=== PATIENT | male | born 1955 | race African-American/Black ===

== ENCOUNTER → 2017-03-22 | Outpatient (CLI) | payer OTHER ==
[~2017-03-22] MED LIST: ASPIR 8181 MG PO; ATENOLOL 50MG T50 M1 PO; NORVASC5 MG PO; VITAMIN B-12500 MCG PO
--- NOTE | ~2017-03-22 | EKG ---
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 No previous ECG available for comparison Electronically Signed On 03-22-2017 8:15:49 INVERTED BLOCK OPERATOR by Nic Del Toro [email or web address] <ELECTRONICALLY SIGNED> By: Nic Del Toro MD 03/22/17 0815 [id number] Nic Del Toro MD /SAMANTHA
== END | disposition home or self-care (01) ==
LOC: LITH 06:34
DX: N20.1 Calculus of ureter (principal); I10 Essential (primary) hypertension; G47.33 Obstructive sleep apnea (adult) (pediatric); Z79.82 Long term (current) use of aspirin; Z79.899 Other long term (current) drug therapy; Z98.890 Other specified postprocedural states